=== PATIENT | male | born 1980 | race Caucasian/White ===

== ENCOUNTER 2020-06-04 09:24 | Outpatient (NON) | payer OTHER, SELFPAY ==
[2020-06-04 21:58] LABS: SARS-CoV-2 RNA PCR Negative
== END 2020-06-04 09:25 ==
LOC: ANHCOVIDDT 09:26
PROVIDERS: Family Provider Internal Medicine; PCP Internal Medicine; Visit Provider Internal Medicine
DX: Z20.822 Contact with and (suspected) exposure to COVID-19 (principal); R68.89 Other general symptoms and signs
CPT/HCPCS: C9803; U0003; U0005